=== PATIENT | female | born 1995 | race Hispanic/Latino ===

== ENCOUNTER → 2018-08-02 | Outpatient (CLI) | payer OTHER ==
[~2018-08-02] MED LIST: ISOVUE-370 76% 100ML VIAL (Q9967) As Ordered ONE
--- NOTE | 2018-08-02 14:48 | REP ---
HYSTEROSALPINGOGRAM: HISTORY: Primary infertility. Fluoroscopy time is 0.3 minutes. The endometrium is cannulated and contrast is injected by the attending hobber. FINDINGS: Sequential spot radiographs taken during the contrast injection demonstrate a triangular filling defect in the fundus of the endometrium on initial images and some nodular changes in the endometrial lining diffusely. Overall, endometrial shape is normal. Question endometrial polyp. The isthmic and ampullary segments of the fallopian tubes opacify normally, and bilateral peritoneal spill is observed. IMPRESSION: Bilateral tubal patency. Somewhat nodular endometrial changes, question polyp. Electronically Signed by Alpesh Hubbard MD 08/02/2018 08:39 P
== END ==
LOC: M RADPRO 11:36
PROVIDERS: ATTEND Obstetrics & Gynecology
DX: N97.9 Female infertility, unspecified (principal)
CPT/HCPCS: 58340; 74740; Q9967

== ENCOUNTER 2018-09-17 20:48 | Emergency (ER) | payer OTHER ==
[~2018-09-17] VITALS: Ht 147.3 cm; Wt 75.5 kg
[2018-09-17] MEDS ORDERED: PRENTAB55 PO (20:53)
[2018-09-17 21:24] LABS: HEMATOCRIT 39.4 % (36.0-47.0); HEMOGLOBIN 13.2 g/dl (12.0-15.5); MEAN CORPUSCULAR HEMOGLOBIN 28.2 pg (27.0-33.0); MEAN CORPUSCULAR HGB CONC 33.5 g/dl (32.0-36.5); MEAN CORPUSCULAR VOLUME 84.2 fl (80.0-96.0); PLATELET COUNT, AUTOMATED 271 10^3/uL (150-450); RED BLOOD COUNT 4.68 10^6/uL (4.00-5.40); WHITE BLOOD COUNT 9.6 10^3/uL (4.0-10.0)
--- NOTE | 2018-09-17 23:27 | REPVR ---
EXAM: US First Trimester, Transabdominal EXAM DATE/TIME: 09/17/2018 10:20 PM CLINICAL HISTORY: 22 years old, female; Signs and symptoms; Lmp or gestational age (in weeks): 7w 0d; Other: Vaginal spotting; ; Additional info: Vaginal bleeding TECHNIQUE: Imaging protocol: Real-time transabdominal obstetrical ultrasound of the maternal pelvis and a first trimester , less than 14 weeks 0 days, with image documentation. COMPARISON: No relevant prior studies available. FINDINGS: GESTATION: Gestation: Gestational sac within the uterus with pole. Heart rate: heartbeat of 150 beats per minute. Placenta: Unremarkable. No subchorionic bleed. BIOMETRY: Free Soil-Rump length: Free Soil rump length is 10 mm suggesting an age of 7 weeks 0 days. The EDC is 05/06/2019. MATERNAL: Uterus: The uterus measures 9.4 cm in its cephalocaudad dimension and 5.3 cm in its AP dimension. Cervix: Unremarkable. Right adnexa: Unremarkable. Right ovary is not seen. Left adnexa: Unremarkable. Left ovary is not seen. Intraperitoneal: No intraperitoneal free fluid. IMPRESSION: Single live intrauterine fetus with an estimated age of 7 weeks 0 days. The EDC is 05/06/2019. Electronically signed by: Eulogio Manjarrez On 09/17/2018 23:26:58 PM
[2018-09-18 00:09] VITALS: BP 116/59
== END 2018-09-18 00:09 | disposition home or self-care (01) ==
LOC: M ED 20:48
DX: O20.9 Hemorrhage in early pregnancy, unspecified (principal); Z3A.01 Less than 8 weeks gestation of pregnancy

== ENCOUNTER 2018-11-01 22:28 | Emergency (ER) | payer OTHER ==
[~2018-11-01] VITALS: Ht 147.3 cm; Wt 73.6 kg
[~2018-11-01 22:28] MED LIST changes: -ISOVUE-370 76% 100ML VIAL (Q9967) As Ordered ONE; +PRENTAB55 PO
[2018-11-02] MEDS ORDERED: ACETAMINOPHEN TAB 650MG DOSE (2X325MG) PO ONE (00:30)
[2018-11-02 01:13] VITALS: BP 133/73
[2018-11-02 01:24] LABS: INFLUENZA A AMPLIFICATION NEGATIVE (NEGATIVE); INFLUENZA B AMPLIFICATION POSITIVE (NEGATIVE)
[2018-11-02] MEDS ORDERED: OSEL75CA PO (01:37)
[2018-11-02] MEDS ORDERED: OSELTAMIVIR PHOSPHATE 75 MG CAP (TAMIFLU) PO ONE (01:45)
== END 2018-11-02 01:57 | disposition home or self-care (01) ==
LOC: M ED 22:28
DX: O98.512 Other viral diseases complicating pregnancy, second trimester (principal); Z3A.14 14 weeks gestation of pregnancy; Z79.899 Other long term (current) drug therapy

== ENCOUNTER 2019-01-13 11:51 | Emergency (ER) | payer OTHER ==
[~2019-01-13] VITALS: Ht 147.3 cm; Wt 75.0 kg
[~2019-01-13 11:51] MED LIST changes: +OSEL75CA PO
[2019-01-13 11:52] VITALS: BP 126/60
[2019-01-13] MEDS ORDERED: FLUTISP (12:46)
[2019-01-13] MEDS ORDERED: ALL10TAB28 PO (12:46)
[2019-01-13] MEDS ORDERED: AMOX875T PO (12:46)
== END 2019-01-13 12:55 | disposition home or self-care (01) ==
LOC: M ED 11:51
DX: H66.93 Otitis media, unspecified, bilateral (principal); J00 Acute nasopharyngitis [common cold]

== ENCOUNTER 2019-04-26 09:12 | Outpatient (CLI) | payer OTHER ==
[~2019-04-26] VITALS: Ht 147.3 cm; Wt 83.1 kg
[~2019-04-26 09:12] MED LIST changes: +ALL10TAB29 PO; +AMOX875T PO; +FLUTISP
[2019-04-26 09:31] VITALS: BP 120/86
[2019-04-26 10:17] VITALS: BP 139/88
--- NOTE | 2019-04-26 10:30 | IPNPDOC ---
Text Note Date of Service The patient was seen on 04/26/19. NOTE patient is a 23 yo G1 @ 40wks gestation presents for regular painful contractions. patient started having contractions this AM. denies LOF/VB. +fm. vitals: normal NAD ABD: Gravid, soft, nt, cephalic by nish's fht: 135/mod yamila/pos accel/ no decel toco: ctx q 1-5mins ce: 1-2/50/-3, posterior, medium a/p patient not in active labor. return precautions given. f/u with regularly scheduled clinic appointments. DO Marycruz VS,Kris, I+O VS, Fishbone, I+O Vital Signs Date Time Temp Pulse Resp B/P (MAP) Pulse Ox O2 Delivery O2 Flow Rate FiO2 04/26/19 09:31 97.8 103 18 120/86 (97) SARAH ANGEL DO Apr 26, 2019 10:27
== END 2019-04-26 10:27 | disposition home or self-care (01) ==
LOC: M LDO 09:12
PROVIDERS: ATTEND Obstetrics & Gynecology
DX: O47.1 False labor at or after 37 completed weeks of gestation (principal); Z3A.40 40 weeks gestation of pregnancy
CPT/HCPCS: 59025; G0378; G0463

== ENCOUNTER 2019-04-26 16:16 | Inpatient (IN) | payer OTHER ==
[~2019-04-26] VITALS: Ht 147.3 cm; Wt 82.7 kg
[2019-04-26 16:37] VITALS: BP 136/84
[2019-04-26] MEDS ORDERED: LACTATED RINGER'S 1000 ML IV ONE (16:45)
--- NOTE | 2019-04-26 17:36 | HPEPDOC ---
Obstetrical History & Physical General Date of Admission Apr 26, 2019 at 16:16 History of Present Illness patient is a 23 yo G1 @ 39+2wks gestation by sure lmp c/w 1st trimester US ALLEN presents for social induction. Patient's insurance plan will be on when her spouse separates from the army. patient desires IOL at this time. 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) Past Medical History Medical History obesity Surgical History: Other (hysteroscopy) Family History Significant Family History: No pertinent family hx Social History Marital Status: Family situation: Spouse/partner home Psychosocial History: No pertinent psych hx * Smoker: non-smoker Alcohol: Denies Drugs: denies Imunizations Tdap status: current Influenza Status: needs Allergies Coded Allergies: No Known Allergies (Unverified , 11/01/18) Medications Scheduled [id number]/Iron Fum/Folic/Docusate ( 19 Tablet) 1 Tab Tab, 1 TAB PO DAILY Physical Examination Physical Examination GENERAL: Alert and oriented times three. BREAST: . ABDOMEN: Gravid and non-tender to touch. FETUS: fetus is vertex (VTX) by Nish and by TAUS . HEART RATE: Regular rate and rhythm. LUNGS: Clear to auscultation (CTA). EXTREMITIES: Non pitting edema, no erythema/tenderness EFW: 3800gm by nish CE: 1-2/50/-3, posterior, medium Pertinent Laboratoy Data Blood Type: O+ RBC Antibody Screen: Negative HIV: Negative Hepatitis B: Negative Rapid Plasma Reagin: Nonreactive Rubella: Nonreactive Varicella: Nonreactive Chlamydia/Gonorrhea: Negative Group B Streptococcus: Negative Cystic Fibrosis: Negative Glucose Tolerance Test: 170 (3hr: 86/180/128/101) Anatomy Ultrasound Placenta Location: Anterior (velamentous cord insertion) Normal Anatomy: Yes Placenta Previa: No Vaginal Examination Dilation: 1cm Effacement: 50% Station: -3 Cervical Consistency: Medium Cervical Position: Posterior Presentation: Cephalic presentation Assessment Heart Rate (FHR): 135 Variability: Moderate Accelerations: Positive Decelerations: None Tocometer Contractions: No Assessment/Plan Assessment patient is a 23 yo G1 @ 39+2wks admitted for social induction. Discussed with patient methods of induction to include cytotec, whitehead bulb, oxytocin and AROM as needed. Discussed pain management with coping, IV pain medication as well as epidural. Discussed monitoring with toco and fht sono and internal monitoring with FSE and or IUPC as indicated. Risks of ceasarean for concern or failed induction discussed. Discussed used of forceps and vacuum with associated risk to mom and baby if needed in an emergency or assistance with delivering baby. Discussed risk of episiotomy, infection requiring antibiotics, bleeding needing blood transfusion and associated risk of anaphylactic reaction and transmission of blood borne pathogens discussed. Plan Admit and orient. 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 Diet: clears Group B Streptococcus (GBS) negative. Labs and intravenous (IV) per unit protocol. Anticipate [normal spontaneous delivery ()]. C-S as appropriate. SARAH ANGEL DO Apr 26, 2019 16:49
[2019-04-26 17:51] LABS: HEMATOCRIT 34.6 % (36.0-47.0); HEMOGLOBIN 11.4 g/dl (12.0-15.5); MEAN CORPUSCULAR HEMOGLOBIN 28.3 pg (27.0-33.0); MEAN CORPUSCULAR HGB CONC 32.9 g/dl (32.0-36.5); MEAN CORPUSCULAR VOLUME 85.9 fl (80.0-96.0); PLATELET COUNT, AUTOMATED 214 10^3/uL (150-450); RED BLOOD COUNT 4.03 10^6/uL (4.00-5.40); WHITE BLOOD COUNT 8.9 10^3/uL (4.0-10.0)
[2019-04-26 18:08] VITALS: BP 114/70
[2019-04-26] MEDS: LR 1,000 ML IV SCH (18:13)
[2019-04-26] MEDS: miSOPROStol 25 MCG 1/4 TAB (S0191) SL SCH ×2 (19:01→23:03)
[2019-04-26 20:34] VITALS: BP 131/80
[2019-04-26 22:00] VITALS: BP 127/77
[2019-04-26 23:05] VITALS: BP 133/95
[2019-04-26 23:06] VITALS: BP 127/90
[2019-04-27] VITALS (48 sets, daily range): BP systolic 108–194; BP diastolic 59–105
[2019-04-27] MEDS ORDERED: miSOPROStol 50 MCG 1/2 TAB (S0191) SL ONE (02:45)
--- NOTE | 2019-04-27 06:54 | IPNPDOC ---
Text Note Date of Service The patient was seen on 04/27/19. NOTE Patient sleeping. per nurse, patient feels mild contractions. She had received cytotec 25mcg x 2 and 50mcg x 1. last dose given at 330 did was not completely dissolved at around 0500. vitals:normal nad, sleeping fht: 120/mod yamila/pos accel/no decel toco: ctx q 1-5mins. a/p patient not in labor. next check due aroun [id number]. continue with induction. patient checked out to day provider. VS,Fishbone, I+O VS, Fishbone, I+O Laboratory Tests 04/26/19 17:31 Vital Signs Date Time Temp Pulse Resp B/P (MAP) Pulse Ox O2 Delivery O2 Flow Rate FiO2 04/27/19 05:37 97.1 93 18 126/78 (94) 04/26/19 18:08 100 Room Air SARAH ANGEL DO Apr 27, 2019 06:54
[2019-04-27] MEDS ORDERED: LACTATED RINGER'S 1000 ML IV ONE (11:00)
[2019-04-27] MEDS: OXYTOCIN DRIP 30 UNITS in IV 1 EA IV SCH (11:16)
[2019-04-27] MEDS: LR 1,000 ML IV SCH ×4 (11:17→23:11)
[2019-04-27 15:41] LABS: HEMATOCRIT 36.7 % (36.0-47.0); HEMOGLOBIN 11.9 g/dl (12.0-15.5); MEAN CORPUSCULAR HEMOGLOBIN 27.9 pg (27.0-33.0); MEAN CORPUSCULAR HGB CONC 32.4 g/dl (32.0-36.5); MEAN CORPUSCULAR VOLUME 85.9 fl (80.0-96.0); PLATELET COUNT, AUTOMATED 207 10^3/uL (150-450); RED BLOOD COUNT 4.27 10^6/uL (4.00-5.40); WHITE BLOOD COUNT 7.6 10^3/uL (4.0-10.0)
[2019-04-27] MEDS ORDERED: FENTANYL 2MCG/ML ROPIVACAINE 0.2% IN 0.9% NACL 100ML IVBAG As Ordered ONE (19:21)
--- NOTE | 2019-04-27 19:41 | IPN ---
DATE: 04/27/2019 This lady is a 23-year-old, 1, para 0 who was admitted for induction of labor. She is at 39 and 2 weeks gestation and she has an ALLEN of May 01, 2019 and she is booked for social induction as insurance plan will on 05/02/2019 and her spouse is from the [employer] on 05/02/2019. She has to date had three lots of misoprostol, 25 mg times two doses and one dose of 50. She did not get very good contractions, in fact she slept most of the evening and the night. This morning on reevaluation and examination, she is extremely difficult to examine as she clenches up and does not tolerate examination well. We had discussed with her other options for induction of labor such as oxytocin Cedeño bulb and she was quite hesitant to use a Cedeño bulb as just the examination itself is quite painful. Therefore, we opted to go ahead and try Pitocin and she has had 6 hours of Pitocin. She is up to 14 milliunits. She has some contractions, although she is expressing just upper abdominal pressure but no pelvic pressure. She has had no vaginal bleeding or loss and now we are at the point where we need to discuss other options for possible vaginal delivery. Her blood pressure presently is 127/76, respirations are 16, pulse is 77 and she is afebrile. She has a category one strip. With extreme difficulty we found that her cervix is soft, -3, 2 cm, posterior, but she barely tolerated that examination. What we did give were options to have an epidural and then place a Cook's catheter, continuing with the Pitocin and the patient will declare herself within 6-8 hours. She is GBS negative and she said she was amenable to having that done and so we are going to order an epidural and then after Cedeño catheter is in, put the Cook's catheter in, dial back the Pitocin, and evaluate her in 4-6 hours' time. It is safe to proceed.
[2019-04-27] MEDS: FENTANYL/ROPIVACAINE/NACL BAG 100 ML EPIDURAL SCH (20:17)
[2019-04-27] MEDS ORDERED: EPIDURAL COMMENT XX SCH (20:45)
[2019-04-27] MEDS ORDERED: REFRIGERATOR IV KEYS XX PRN (20:45)
[2019-04-27] MEDS ORDERED: ePHEDrine SULFATE 25 MG/5 ML(5MG/ML) SYRINGE IV PRN (20:45)
[2019-04-27] MEDS ORDERED: diphenhydrAMINE INJ 50MG/ML VIAL (J1200) IV PRN (20:45)
[2019-04-27] MEDS ORDERED: LACTATED RINGER'S 1000 ML IV PRN (20:45)
[2019-04-27] MEDS ORDERED: EPIDURAL/PCA KEYS XX PRN (20:45)
[2019-04-27] MEDS ORDERED: NALOXONE INJ 0.4 MG/1 ML VIAL (J2310) IV PRN (20:45)
[2019-04-27] MEDS ORDERED: ONDANSETRON 4MG/2ML VIAL (J2405) IV PRN (20:45)
[2019-04-28] VITALS (38 sets, daily range): BP systolic 109–172; BP diastolic 60–104
[2019-04-28] MEDS: LR 1,000 ML IV SCH ×4 (03:40→18:12)
[2019-04-28] MEDS: FENTANYL/ROPIVACAINE/NACL BAG 100 ML EPIDURAL SCH (06:00)
--- NOTE | 2019-04-28 08:40 | IPN ---
DATE: 04/27/2019 This lady is a 2, para 0, who was admitted for induction of labor at 39+ weeks of gestation. She had three lots of misoprostol, two at 25 mg and one at 50 mg. She did nothing over the last 24 hours. When examined, she is extremely difficult to examine, and she declined initially Cedeño bulb induction of labor and requested just Pitocin. She ran 6 hours of Pitocin. We then were able to examine her and still basically no change in the cervix. It was 2 cm, posterior -3 station, but soft. We discussed the plan of care, which was to have an epidural, place a Cook catheter and dial back the Pitocin to half of the 14 milliunits to see if we could encourage some receptors to stop firing and then reestablish good contractions. After an epidural in place, still difficult to examine. We were after 15 minutes able to get a Cook catheter into the uterus. We placed 60 mL in the uterine balloon and 40 mL in the vaginal balloon. A category one strip. Blood pressure, pulse and respirations were within normal limits. GBS positive. She had a bit of bloody show secondary to our examination and the Cook catheter placement. The patient was comfortable with her epidural and our plan is to reevaluate her in 4 hours time.
--- NOTE | 2019-04-28 09:46 | IPNPDOC ---
Text Note Date of Service The patient was seen on 04/28/19. NOTE accept care from Dr. Harris. Yesterday, patient had whitehead bulb placed after e pidural was placed. whitehead bulb comes out at 0600 this am. She SROM at that time checked to be 5-6cm by Dr. Harris. pit at 10mU/min vitals: normal fht: 140/mod-min yamila/pos accel/occasional early decel toco: ctx q 3mins ce (by nurse): 9/c/-1 A/P patient in active labor, progressing. continue to titrate pit to effect. recheck in 2 hrs. DO Marycruz VS,Kris, I+O VS, Fishbone, I+O Laboratory Tests 04/27/19 15:35 Vital Signs Date Time Temp Pulse Resp B/P (MAP) Pulse Ox O2 Delivery O2 Flow Rate FiO2 04/28/19 07:46 96 125/76 (92) 04/28/19 07:12 98.2 20 100 Room Air I&O- Last 24 Hours up to 6 AM 04/28/19 06:00 Intake Total 4800 ml Output Total 2025 ml Balance 2775 ml SARAH ANGEL DO Apr 28, 2019 09:39
[2019-04-28] MEDS: OXYTOCIN DRIP 30 UNITS in IV 1 EA IV SCH (10:41)
--- NOTE | 2019-04-28 11:21 | IPNPDOC ---
Text Note Date of Service The patient was seen on 04/28/19. NOTE patient is comfortable with epidural pit: 10mU/min fht: 140/mod yamila/pos accel/no decel toco: ctx q 3 mins CE: 8/100/-1 a/p patient in active labor, protracted. Discussed with patient for arrest of dilation. IUPC placed adequacy of contraction. titrate pit to have mvu 180- 240. recheck in 2hrs. DO Marycruz VS,Kris, I+O VS, Kris, I+O Laboratory Tests 04/27/19 15:35 Vital Signs Date Time Temp Pulse Resp B/P (MAP) Pulse Ox O2 Delivery O2 Flow Rate FiO2 04/28/19 10:14 94 20 143/90 (107) 04/28/19 07:12 98.2 100 Room Air I&O- Last 24 Hours up to 6 AM 04/28/19 06:00 Intake Total 4800 ml Output Total 2025 ml Balance 2775 ml SARAH ANGEL DO Apr 28, 2019 11:21
--- NOTE | 2019-04-28 13:06 | IPN ---
DATE: 04/28/2019 This lady is a 23-year-old, 1, para 0, who was admitted for induction of labor. She has had three lots of misoprostol. She eventually had some Pitocin, up to 14 milliunits for approximately 6 hours. This did not produce any effective change in her cervix. After discussion with the patient and the fact that she is very difficult to examine, the plan of care evolved in that we would use an epidural in order to effectively allow us to put a Cook catheter in. At the time of the Cook catheter placement, it was very tight. 2 cm, very posterior and thick. We dialed back the Pitocin from 14 to 7 and put the Cook catheter in with some difficulty. It took approximately 20 minutes to put it in and filled it with uterine to 60 and vaginal to 40. At 0600 hours this morning, the Cook catheter fell out. On re-examination of the patient, she was found to have a spontaneous rupture of membranes of a large amount of clear liquid, vertex presenting, anterior cervix, 5-6, very stretchy, soft, 100% effaced, and well applied to the cervix. Presently a category one strip with occasional runs of category II. Blood pressure is within normal limits. Our plan of management is to dial back the Pitocin from 18 to 10 and evaluate her in 2 or 3 hours times to see if there is any change in the cervix and it is safe to proceed.
--- NOTE | 2019-04-28 14:22 | IPNPDOC ---
Text Note Date of Service The patient was seen on 04/28/19. NOTE patient is comfortable. IUPC recently came out. pit: 14mU/min vitals: mild range nad fht: 140/mod-min yamila/no accel/no decel IUPC: 100-200 MVU when it was in toco ctx q 3mins CE: 8/C/-1 A/P Patient with arrest of dilation at 8cm. Recommend section at this time. Risks of section discussed with patient. Discuss delivery is a major surgery. Risk of injuring to sorrounding organs, infection, bleeding requiring blood transfusion, hysterectomy, pain, injury to baby explained. patient expresses understanding and desires to move forward with c esarean delivery. or team notified. ancef and azithromycin for prophy back to or once team ready. DO TING Joel,Kris, I+O VS, Kris, I+O Laboratory Tests 04/27/19 15:35 Vital Signs Date Time Temp Pulse Resp B/P (MAP) Pulse Ox O2 Delivery O2 Flow Rate FiO2 04/28/19 10:14 94 20 143/90 (107) 04/28/19 07:12 98.2 100 Room Air I&O- Last 24 Hours up to 6 AM 04/28/19 06:00 Intake Total 4800 ml Output Total 2025 ml Balance 2775 ml SARAH JOEL DO Apr 28, 2019 14:22
[2019-04-28] MEDS ORDERED: BICITRA 30ML SOLN UDC PO ONE (14:30)
[2019-04-28] MEDS ORDERED: AZITHROMYCIN INJ 500 MG, VIAL MATE ADAPTER 1 EACH in D5W 250 ML IV ONE (14:30)
[2019-04-28] MEDS ORDERED: dexameTHASONE 4 MG/ML 1ML VIAL (J1100) As Ordered ONE (14:41)
[2019-04-28] MEDS ORDERED: OXYTOCIN INJ 10 UNITS/ML VIAL (J2590) As Ordered ONE (14:41)
[2019-04-28] MEDS ORDERED: ONDANSETRON 4MG/2ML VIAL (J2405) As Ordered ONE (14:41)
[2019-04-28] MEDS ORDERED: LIDOCAINE PRES-FREE 2% 10ML AMP As Ordered ONE (14:51)
[2019-04-28] MEDS ORDERED: TRANEXAMIC ACID 100 MG/ML 10ML VIAL As Ordered ONE (14:55)
[2019-04-28] MEDS ORDERED: TRANEXAMIC ACID INJection 1,000 MG in D5W 100 ML IV ONE (15:00)
[2019-04-28] MEDS ORDERED: TRANEXAMIC ACID INJection 1,000 MG in D5W MINI-BAG PLUS 100 ML IV ONE (15:00)
[2019-04-28] MEDS ORDERED: ceFAZolin SOD 2 GM in IV 1 EA IV ONE (15:00)
[2019-04-28] MEDS ORDERED: fentaNYL 100 MCG/2 ML INJECTION (J3010) As Ordered ONE (15:42)
[2019-04-28] MEDS ORDERED: MORPHINE PRES-FREE INJ 10 MG/10 ML VIAL (J2274) As Ordered ONE (15:45)
[2019-04-28] MEDS ORDERED: NALOXONE INJ 0.4 MG/1 ML VIAL (J2310) IV PRN ×2 (15:45)
[2019-04-28] MEDS ORDERED: METOCLOPRAMIDE INJ 10MG/2ML VIAL (J2765) IV PRN ×2 (15:45→17:15)
[2019-04-28] MEDS ORDERED: diphenhydrAMINE INJ 50MG/ML VIAL (J1200) IV PRN (15:45)
[2019-04-28] MEDS ORDERED: ONDANSETRON 4MG/2ML VIAL (J2405) IV PRN ×2 (15:45→17:15)
[2019-04-28] MEDS ORDERED: NALBUPHINE HCL 10 MG/ML AMP (J2300) IV PRN (15:45)
[2019-04-28] MEDS ORDERED: ACETAMINOPHEN 1000MG 100ML IV BTL (OFIRMEV) (J0131 PER 10MG) As Ordered ONE (15:56)
[2019-04-28] MEDS ORDERED: MIDAZOLAM INJ 2 MG/2 ML VIAL (J2250) As Ordered ONE (15:58)
[2019-04-28] MEDS ORDERED: BUPIVACAINE HCL 0.5% 30 ML VIAL As Ordered ONE (16:13)
[2019-04-28] MEDS ORDERED: PROPOFOL 200 MG/20 ML VIAL As Ordered ONE (16:18)
--- NOTE | 2019-04-28 16:58 | DNPDOC ---
[facility] Delivery Note Delivery Note DATE OF DELIVERY: 04/28/2019 PREDELIVERY DIAGNOSIS: gravid @ 39+4wks arrest of dilation POST DELIVERY DIAGNOSIS: post primary low transverse section PROCEDURE: primary low transverse section AUTOMOTIVE TEACHER: Dr. Sarah Joel DO ANESTHESIA: epidural ESTIMATED BLOOD LOSS: 800 mL. FINDINGS: 7 pound 7 ounce, Score 9/9. DELIVERY SUMMARY: Uncomplicated primary low transverse section. see operative note for details. SARAH JOEL DO Apr 28, 2019 16:58
[2019-04-28] MEDS ORDERED: miSOPROStol 200 MCG TAB (S0191) PR ONE (17:00)
[2019-04-28] MEDS ORDERED: MEASLES,MUMPS,RUBELLA VACCINE INJ (MMR-II) (90707) SC SCH (17:00)
[2019-04-28] MEDS ORDERED: DOCUSATE SODIUM 100 MG CAP PO PRN (17:00)
[2019-04-28] MEDS ORDERED: RHOGAM 300 MCG (1500 IU) INJ (J2790) IM SCH (17:00)
[2019-04-28] MEDS ORDERED: oxyCODONE 5MG TAB PO PRN (17:15)
[2019-04-28] MEDS ORDERED: fentaNYL 100 MCG/2 ML INJECTION (J3010) IV PRN (17:15)
[2019-04-28] MEDS ORDERED: PERCOCET 5MG/325MG TAB PO PRN (17:15)
[2019-04-28] MEDS ORDERED: LR 1,000 ML IV SCH (17:15)
--- NOTE | 2019-04-28 17:32 | POST-OPPD ---
Postoperative Procedure Note Date Of Procedure: Apr 28, 2019 PREOPERATIVE DIAGNOSIS: gravid @39+4wks gestation arrest of dilation POSTOPERATIVE DIAGNOSIS: status post primary low transverse section FINDINGS: viable male infant, weight 7lbs, 7oz, 9/9. PROCEDURE: primary low transverse section SURGEON: Nishant Baird NUCLEAR LOGGING ENGINEER: Delfina Vargas CNM ANESTHESIA: epidural SPECIMENS: none ESTIMATED BLOOD LOSS: 800cc REPLACED: 1600cc LR DRAINS: 150cc urine output MEDICATIONS: pre-op: ancef 2gm azithromycin 500mg tranexamic acid 1000mg post op: pitocin IV cytotec 1000mcg pr COMPLICATIONS: none POSTOPERATIVE CONDITION: stable Indication for procedure: Patient is a yo @ 39+4wks admitted for induction of labor. Patient arrests at 8cm. Description of procedure: The risks, benefits, indications and alternatives to the procedure were reviewed with the patient and informed consent was obtained. Labor epidural anesthesia was dosed for surgical analgesic. She was prepped and draped in the normal sterile fashion in the dorsal supine position with a leftward tilt. The abdomen was entered through a pfannenstiel incision. Sharp dissection taken down to fascia layer. Fascia layer entered with sharply and carried lateral and upward bilaterally. Superior border of fascia grasp with Krockers x 2 and a s pace between fascia and rectus muscle created bluntly and sharply. Inferior fascia layer grasp with Krockers x 2 and fascia from rectus muscle bluntly and sharply. The rectus muscles and peritoneum bluntly along midline and exposes the gravid uterus. Mobius retractor placed intraabdominal. The vesicouterine peritoneum was identified. A Juarez uterine incision made sharply. The uterine incision was extended superolaterally. Baby found to be OP. Head delivered through the hysterotomy. The anterior (right) shoulder and arm delivered, followed by the posterior shoulder. Body followed with ease. The cord was clamped and cut. The infant was handed off to baby nurse. Pitocin bolus started. Blood collected for routine lab. The placenta delivered spontaneously. The uterus was cleared of all clots and debris. The uterine incision was repaired with a 2 layers of with 0 chromic in a running locking fashion and imbricating layer with O monocryl. Hysterotomy inspected to be hemostatic. The peritoneum, fascia and muscle bellies were inspected and noted to be hemostatic. The peritoneum brought back together midline with 3-0 vicryl. The fascia approximated with 0 vicryl suture in a running fashion. Marcaine 0.5% (16cc total) injected subcuticular for additional analgesic. The subcutaneous tissue closed with 3-0 vicryl. The skin was closed with subcuticular 4-0 Monocryl. Dressing applied. The vagina was cleared of clots. Sponge laps, needle and instruments count correct x 2. Patient taken to recovery room in stable condition. DO JEANNE Joel LUAT N. DO Apr 28, 2019 17:01
[2019-04-28 21:58] LABS: HEMATOCRIT 28.9 % (36.0-47.0); MEAN CORPUSCULAR HEMOGLOBIN 28.2 pg (27.0-33.0); MEAN CORPUSCULAR HGB CONC 32.9 g/dl (32.0-36.5); MEAN CORPUSCULAR VOLUME 85.8 fl (80.0-96.0); PLATELET COUNT, AUTOMATED 175 10^3/uL (150-450); RED BLOOD COUNT 3.37 10^6/uL (4.00-5.40); WHITE BLOOD COUNT 14.5 10^3/uL (4.0-10.0)
[2019-04-28 22:04] LABS: HEMOGLOBIN 9.5 g/dl (12.0-15.5)
[2019-04-28] MEDS: KETOROLAC 30 MG/ML VIAL (J1885) IV SCH (22:08)
[2019-04-29] VITALS (8 sets, daily range): BP systolic 109–143; BP diastolic 59–81
[2019-04-29] MEDS: PERCOCET 5MG/325MG TAB PO PRN ×2 (03:51→13:48)
[2019-04-29] MEDS: KETOROLAC 30 MG/ML VIAL (J1885) IV SCH ×2 (05:57→10:01)
[2019-04-29 06:37] LABS: HEMATOCRIT 26.2 % (36.0-47.0); HEMOGLOBIN 8.8 g/dl (12.0-15.5); MEAN CORPUSCULAR HEMOGLOBIN 28.5 pg (27.0-33.0); MEAN CORPUSCULAR HGB CONC 33.6 g/dl (32.0-36.5); MEAN CORPUSCULAR VOLUME 84.8 fl (80.0-96.0); PLATELET COUNT, AUTOMATED 175 10^3/uL (150-450); RED BLOOD COUNT 3.09 10^6/uL (4.00-5.40); WHITE BLOOD COUNT 11.4 10^3/uL (4.0-10.0)
[2019-04-29 07:02] LABS: ALBUMIN 1.8 GM/DL (3.2-5.2); ALT/SGPT 19 U/L (12-78); BILIRUBIN,TOTAL 0.3 MG/DL (0.2-1.0); BLOOD UREA NITROGEN 9 MG/DL (7-18); CARBON DIOXIDE LEVEL 21 MEQ/L (21-32); CHLORIDE LEVEL 108 MEQ/L (98-107); CREATININE FOR GFR 0.72 MG/DL (0.55-1.30); GLOMERULAR FILTRATION RATE > 60.0 (>60); GLUCOSE, FASTING 71 MG/DL (70-100); POTASSIUM SERUM 4.2 MEQ/L (3.5-5.1); SODIUM LEVEL 137 MEQ/L (136-145); TOTAL PROTEIN 5.7 GM/DL (6.4-8.2)
--- NOTE | 2019-04-29 07:21 | IPNPDOC ---
Progress Note Date of Service: Apr 29, 2019 Day#: 1 Progress Note SUBJECT: Patient is a 23 yo s/p PLTCD for arrest of dilation pod #1. She has no complaints this AM. denies dizziness. She has been ambulating, tolerating regular diet. Breast feeding without issue. whitehead still in. Reports lochia is like a normal period. Undecided on contraceptive option at this time. She is leaning towards the pill. Family is set to move to [place] on November 02. OBJECTIVE: VITAL SIGNS: Within normal limits, afebrile. Alert and oriented times three. Abdomen: Fundus firm at U-1. Soft, appropriate tenderness. dressing on, no strikethrough. h/h: 8.6/ A/P patient pod #1, recovering well. asymptomatic anemia. patient counseled on iv iron and associated risk of allergic reaction to medication. patient desires to receive IV iron. contraceptive counseling. encourage bf. start IV iron infusion today. whitehead out this am. anticipate d/c home on ppd #3. VS, I&O, 24H, Kris Vital Signs/I&O Vital Signs Date Time Temp Pulse Resp B/P (MAP) Pulse Ox O2 Delivery O2 Flow Rate FiO2 04/29/19 05:43 99.8 110 18 117/59 (78) 97 04/29/19 04:45 Room Air I&O- Last 24 Hours up to 6 AM 04/29/19 06:00 Intake Total 5401 ml Output Total 2600 ml Balance 2801 ml Laboratory Data 24H LABS Laboratory Tests 2 04/28/19 21:43: Nucleated Red Blood Cells % (auto) 0.0 04/29/19 06:21: Nucleated Red Blood Cells % (auto) 0.0, Anion Gap 8, Glomerular Filtration Rate > 60.0, Calcium Level 8.0L, Total Bilirubin 0.3, Aspartate Amino Transf (AST/SGOT) 20, Alanine Aminotransferase (ALT/SGPT) 19, Alkaline Phosphatase 1 38H, Total Protein 5.7L, Albumin 1.8L, Albumin/Globulin Ratio 0.46L CBC/BMP Laboratory Tests 04/28/19 21:43 04/29/19 06:21 SARAH ANGEL DO Apr 29, 2019 07:21
[2019-04-29] MEDS: PRENATAL VITAMINS CHEWABLE TABLET PO SCH (08:32)
[2019-04-29] MEDS ORDERED: IRON SUCROSE 100MG 5ML VIAL (J1756 PER 1MG) IV SCH (09:00)
[2019-04-29] MEDS ORDERED: IRON SUCROSE 300 MG in NS 250 ML OVER 90 MIN. IV SCH (10:00)
[2019-04-29] MEDS: IBUPROFEN 800 MG TAB PO SCH (18:42)
[2019-04-30] MEDS ORDERED: MOM 30ML SUSPENSION UDC PO PRN (01:00)
[2019-04-30 03:03] VITALS: BP 126/71
[2019-04-30] MEDS: IBUPROFEN 800 MG TAB PO SCH ×2 (03:05→10:52)
[2019-04-30] MEDS ORDERED: PERCOCET PO (06:29)
[2019-04-30] MEDS ORDERED: IBUP80TA PO (06:29)
[2019-04-30] MEDS: PRENATAL VITAMINS CHEWABLE TABLET PO SCH (09:48)
[2019-04-30] MEDS: PERCOCET 5MG/325MG TAB PO PRN (13:11)
--- NOTE | 2019-04-30 18:59 | DSES ---
DATE OF ADMISSION: 04/26/2019 DATE OF DISCHARGE: 04/30/2019 This lady is a 23-year-old 1, now para 1 admitted for induction of labor at 39 and 2 weeks of gestation. Had a primary section for arrest of descent, live male infant, 7 pounds 7 ounces, 3360 grams, scores of 9 and 9 at 1 and 5 minutes respectively. 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 Her admitting hemoglobin was 11.4, hematocrit 34.6, platelets 214. She had a repeat CBC the next day of 9.5, hematocrit 28.9 and platelets were 175. She was infused 1 unit of iron and repeat of her CBC was 8.8, hematocrit 26.2 and platelets were 175 and she was asymptomatic. On discharge, we discussed phlebitis, cystitis, mastitis, endometritis, cellulitis, diet, exercise, pain management, perineal. breast and wound care. On discharge, the patient's blood pressure was 126/71, respirations are 20, pulse 100, temperature 98.9 and she is asymptomatic. The rest of the examination is unremarkable. Normocephalic, atraumatic. Neck full range of motion. Pupils equal and reactive to light. Distal pulses are symmetric. No evidence of DVT, PE or superficial phlebitis. Chest is clear bilaterally to bases. No wheezes or rhonchi. No CVA tenderness. Abdomen soft. Uterus two below. Lochia is moderate. Four quadrant bowel sounds are noted. Incision is clean and dry. She has no rashes, lesions or pruritus. No arthralgia. No myalgia. No complaint of cough, wheezes, shortness of breath or dyspnea on exertion. No incontinency, urgency, or frequency. No nausea, vomiting, diarrhea or constipation. In summary, we have a term gestation who delivered a live male by section, has a 2-week incision check and a 6-week check. Medications were dispensed at discharge.
== END 2019-04-30 13:10 | disposition home or self-care (01) | DRG 773 ==
LOC: M LDI 16:16 → M OBS 04-28 18:35
PROVIDERS: ADMIT Obstetrics & Gynecology; ATTEND Obstetrics & Gynecology
PROC: 3E0DXGC Introduction of Other Therapeutic Substance into Mouth and Pharynx, External Approach (ICD-10-PCS; 2019-04-26)
PROC: 10D00Z1 Extraction of Products of Conception, Low, Open Approach (ICD-10-PCS; principal; 2019-04-28 14:33)
DX: O62.0 Primary inadequate contractions (principal); Z37.0 Single live birth; Z3A.39 39 weeks gestation of pregnancy; O75.89 Other specified complications of labor and delivery